=== PATIENT | male | born 1945 | race African-American/Black ===

== ENCOUNTER 2022-10-30 10:58 | Observation (INO) ==
[2022-10-30 11:52] LABS: Basophils % 0.3 % (0.0-0.8); Eosinophils % 0.1 % (0.00-10.9); Hematocrit 47.6 VOL% (42.0-52.0); Hemoglobin 15.5 GM/DL (14.0-18.0); Immature Granulocytes % 1.1 %; Immature Granulocytes Absolute 0.13 #; Lymphocytes # 0.8 10*3/uL (1.4-4.0); Mean Corpuscular HGB Conc 32.6 GM/DL (32-36); Mean Corpuscular Volume 93.2 FL (87-102); Mean Platelet Volume 9.2 FL (9.6-12.0); Monocytes # 1.5 10*3/uL (0.11-0.8); Monocytes % 12.6 % (1.7-12.7); Neutrophils % 78.9 % (38.7-73.9); Platelet Count 164 T/CUMM (130-400); Red Blood Count 5.11 MC/CUMM (3.8-5.5); Red Cell Distribution Width 14.1 % (9.3-17.3); White Blood Count 11.9 T/CUMM (4-12)
[2022-10-30 12:09] LABS: Albumin 3.1 G/DL (3.4-5.0); Bilirubin,Total 1.4 MG/DL (0.20-1.00); Calcium 10.2 MG/DL (8.5-10.1); Osmolality,Calculated 274.2 MOS/KG (273-304); Potassium 3.1 MMOL/L (3.5-5.1); Total Protein 6.5 G/DL (6.4-8.2)
[2022-10-30] MEDS ORDERED: SODIUM CHLORIDE 0.9% 1,000 ML IV STA (12:27)
[2022-10-30] MEDS ORDERED: ACETAMINOPHEN 325 MG TABLET PO PRN (14:22)
[2022-10-30] MEDS ORDERED: SIMETHICONE CHEW 125 MG TABLET PO PRN (14:22)
[2022-10-30] MEDS ORDERED: ONDANSETRON 4 MG/2 ML VIAL IV PRN (14:22)
[2022-10-30] MEDS ORDERED: DOCUSATE SODIUM 100 MG CAPSULE PO PRN (14:22)
[2022-10-30] MEDS ORDERED: ALBUTEROL 2.5 MG/3 ML NEB RESP TX PRN (14:22)
[2022-10-30] MEDS ORDERED: hydrALAZINE 20 MG/1 ML VIAL IV PRN (14:22)
[2022-10-30] MEDS ORDERED: POTASSIUM CHLORIDE 10 MEQ TABLET PO ONE (15:25)
[2022-10-30] MEDS ORDERED: NON-FORMULARY MEDICATION (Albuterol Sulfate 90 mcg/actuation HFA aerosol inhaler) INH PRN (15:27)
[2022-10-30] MEDS: SODIUM CHLORIDE 0.9% 1,000 ML IV SCH (17:29)
[2022-10-30] MEDS: NILOTINIB 150 MG PO SCH (17:54)
[2022-10-30] MEDS: ENOXAPARIN 40 MG/0.4 ML SYRINGE SUBCUT SCH (21:33)
[2022-10-30] MEDS: ROSUVASTATIN 20 MG TABLET PO SCH (21:33)
[2022-10-30] MEDS: MAGNESIUM CHLORIDE 64 MG TABLET PO SCH (21:33)
[2022-10-30] MEDS: methylPREDNISolone 4 MG TABLET PO SCH (21:33)
[2022-10-31] MEDS: NILOTINIB 150 MG PO SCH ×2 (05:00→15:53)
[2022-10-31 06:41] LABS: Basophils % 0.2 % (0.0-0.8); Eosinophils % 0.2 % (0.00-10.9); Hematocrit 37.5 VOL% (42.0-52.0); Hemoglobin 12.3 GM/DL (14.0-18.0); Immature Granulocytes Absolute 0.08 #; Lymphocytes # 0.6 10*3/uL (1.4-4.0); Lymphocytes % 7.7 % (21.2-54.2); Mean Corpuscular HGB Conc 32.8 GM/DL (32-36); Mean Corpuscular Volume 92.8 FL (87-102); Mean Platelet Volume 10.3 FL (9.6-12.0); Monocytes # 1.1 10*3/uL (0.11-0.8); Monocytes % 14.2 % (1.7-12.7); Neutrophils % 76.7 % (38.7-73.9); Platelet Count 111 T/CUMM (130-400); Red Blood Count 4.04 MC/CUMM (3.8-5.5); Red Cell Distribution Width 14.3 % (9.3-17.3); White Blood Count 8.1 T/CUMM (4-12)
[2022-10-31 07:10] LABS: Albumin 2.2 G/DL (3.4-5.0); Bilirubin,Total 1.2 MG/DL (0.20-1.00); Calcium 8.3 MG/DL (8.5-10.1); Potassium 2.7 MMOL/L (3.5-5.1); Risk Ratio 1.86; Thyroid Stimulating Hormone 0.606 uIU/ml (0.358-3.74); Total Protein 5.1 G/DL (6.4-8.2); VLDL Cholesterol 14.8 MG/DL
[2022-10-31] MEDS ORDERED: POTASSIUM CHLORIDE 20 MEQ TABLET PO ONE (08:24)
[2022-10-31] MEDS: methylPREDNISolone 4 MG TABLET PO SCH ×2 (09:07→21:27)
[2022-10-31] MEDS: PANTOPRAZOLE 40 MG TABLET PO SCH (09:08)
[2022-10-31] MEDS: CHOLECALCIFEROL 5,000 UNIT TABLET PO SCH (09:08)
[2022-10-31] MEDS: ASCORBIC ACID 500 MG TABLET PO SCH (09:08)
[2022-10-31] MEDS: MULTIVITAMIN (CENTRUM) TABLET PO SCH (09:08)
[2022-10-31] MEDS: FOLIC ACID 1 MG TABLET PO SCH (09:08)
[2022-10-31] MEDS: POTASSIUM CHLORIDE 10 MEQ TABLET PO SCH (09:08)
[2022-10-31] MEDS: MAGNESIUM CHLORIDE 64 MG TABLET PO SCH ×2 (09:08→21:27)
[2022-10-31 10:48] LABS: % Iron Saturation 39.4 % (18-50)
[2022-10-31 11:20] LABS: Folate > 24.00 NG/ML (5.38-24.0); Vitamin B12 > 2000 PG/ML (211-911)
[2022-10-31] MEDS: SODIUM CHLORIDE 0.9% 1,000 ML IV SCH ×2 (11:25→19:20)
[2022-10-31] MEDS ORDERED: DIGOXIN 0.125 MG TABLET PO SCH (13:00)
[2022-10-31] MEDS: ENOXAPARIN 40 MG/0.4 ML SYRINGE SUBCUT SCH (21:27)
[2022-10-31] MEDS: ROSUVASTATIN 20 MG TABLET PO SCH (21:27)
[2022-11-01] MEDS: NILOTINIB 150 MG PO SCH (01:35)
[2022-11-01 05:14] LABS: Basophils % 0.2 % (0.0-0.8); Eosinophils % 0.2 % (0.00-10.9); Hematocrit 35.7 VOL% (42.0-52.0); Hemoglobin 12.1 GM/DL (14.0-18.0); Immature Granulocytes % 1.2 %; Immature Granulocytes Absolute 0.11 #; Lymphocytes # 0.6 10*3/uL (1.4-4.0); Lymphocytes % 6.7 % (21.2-54.2); Mean Corpuscular HGB Conc 33.9 GM/DL (32-36); Mean Corpuscular Volume 92.2 FL (87-102); Mean Platelet Volume 9.3 FL (9.6-12.0); Monocytes # 1.1 10*3/uL (0.11-0.8); Monocytes % 12.1 % (1.7-12.7); Neutrophils % 79.6 % (38.7-73.9); Platelet Count 121 T/CUMM (130-400); Red Blood Count 3.87 MC/CUMM (3.8-5.5); Red Cell Distribution Width 14.6 % (9.3-17.3); White Blood Count 9.3 T/CUMM (4-12)
[2022-11-01 05:42] LABS: Calcium 8.2 MG/DL (8.5-10.1); Osmolality,Calculated 278.5 MOS/KG (273-304); Potassium 3.1 MMOL/L (3.5-5.1)
[2022-11-01] MEDS: methylPREDNISolone 4 MG TABLET PO SCH (08:57)
[2022-11-01] MEDS: FOLIC ACID 1 MG TABLET PO SCH (08:58)
[2022-11-01] MEDS: CHOLECALCIFEROL 5,000 UNIT TABLET PO SCH (08:58)
[2022-11-01] MEDS: ASCORBIC ACID 500 MG TABLET PO SCH (08:58)
[2022-11-01] MEDS: POTASSIUM CHLORIDE 10 MEQ TABLET PO SCH (08:58)
[2022-11-01] MEDS: MULTIVITAMIN (CENTRUM) TABLET PO SCH (08:58)
[2022-11-01] MEDS: MAGNESIUM CHLORIDE 64 MG TABLET PO SCH (08:58)
[2022-11-01] MEDS: PANTOPRAZOLE 40 MG TABLET PO SCH (08:58)
[2022-11-01] MEDS: SODIUM CHLORIDE 0.9% 1,000 ML IV SCH (10:33)
[2022-11-01 12:33] VITALS: BP 99/47
== END 2022-11-01 12:59 | disposition home or self-care (01) ==
LOC: N.ED 10:58 → N.EDINP 10:58 → N.2W 15:45
PROVIDERS: ADMIT Internal Medicine; ATTEND Internal Medicine

== ENCOUNTER 2022-11-07 02:56 | Inpatient (IN) ==
[2022-11-07] MEDS ORDERED: ALBUTEROL/IPRATROPIUM 3 ML NEB RESP TX STA (03:15)
[2022-11-07] MEDS ORDERED: FUROSEMIDE 40 MG/4 ML VIAL IV STA ×2 (03:15→03:24)
[2022-11-07] MEDS ORDERED: methylPREDNISolone SOD SUC 125 MG/2 ML VIAL IV STA (03:15)
[2022-11-07] MEDS ORDERED: ONDANSETRON 4 MG/2 ML VIAL IV STA (03:15)
[2022-11-07] MEDS ORDERED: FUROSEMIDE 40 MG/4 ML VIAL ONE (03:24)
[2022-11-07 03:29] LABS: Basophils % 0.1 % (0.0-0.8); Hemoglobin 12.8 GM/DL (14.0-18.0); Immature Granulocytes % 0.5 %; Immature Granulocytes Absolute 0.05 #; Lymphocytes # 0.3 10*3/uL (1.4-4.0); Lymphocytes % 3.3 % (21.2-54.2); Mean Corpuscular HGB Conc 32.8 GM/DL (32-36); Mean Corpuscular Volume 94.7 FL (87-102); Mean Platelet Volume 9.6 FL (9.6-12.0); Monocytes # 1.4 10*3/uL (0.11-0.8); Monocytes % 15.1 % (1.7-12.7); Platelet Count 168 T/CUMM (130-400); Red Blood Count 4.12 MC/CUMM (3.8-5.5); Red Cell Distribution Width 16.3 % (9.3-17.3); White Blood Count 9.51 T/CUMM (4-12)
[2022-11-07] MEDS ORDERED: ACETAMINOPHEN 500 MG TABLET PO STA (03:36)
[2022-11-07 03:39] LABS: INR 0.9; PT Patient Result 9.9 SECS (10.1-12.1)
[2022-11-07 03:50] LABS: Band Neutrophils 2 % (0-10); Lymphocytes 7 % (20-55); Platelet Estimate Adequate; Total Cells Counted 100
[2022-11-07 03:52] LABS: Albumin 2.4 G/DL (3.4-5.0); Bilirubin,Total 1.2 MG/DL (0.20-1.00); Calcium 8.9 MG/DL (8.5-10.1); Osmolality,Calculated 289.8 MOS/KG (273-304); Potassium 4.3 MMOL/L (3.5-5.1); Total Protein 5.9 G/DL (6.4-8.2)
[2022-11-07 04:01] LABS: Arterial Base Excess iSTAT 1 MMOL/L (-2.5-2.5); Arterial Bicarbonate iSTAT 25.2 MMOL/L (20-26); Arterial O2 Saturation iSTAT 89 % (95-100); Arterial PCO2 iSTAT 36 MM HG (35-48); Arterial PO2 iSTAT 54 MM HG (80-95); Arterial Total CO2 iSTAT 26 MMO/L (23-27)
[2022-11-07 04:06] LABS: Bacteria,Urine Occasional /HPF (Few); Mucus,Urine Occasional /LPF (Occasional); RBC,Urine 4 /HPF (0-4)
[2022-11-07 04:07] LABS: Urine Appearance Clear (Clear); Urine Color Yellow (Yellow); Urine Specific Gravity 1.015 (1.001-1.035)
[2022-11-07 04:08] LABS: Bilirubin,Urine Negative (Negative); Blood, Urine Moderate mg/dL (Negative); Glucose,Urine (UA) Negative (Negative); Ketones,Urine Negative (Negative); Nitrite,Urine Negative (Negative); Protein,Urine 100 mg/dL (Negative); Urine Urobilinogen 0.2 eU/dL (<2.0)
[2022-11-07] MEDS: PIPERACILLIN/TAZOBACTAM 3,375 MG in SODIUM CHLORIDE 0.9% 100 ML IV SCH ×3 (04:11→20:50)
[2022-11-07] MEDS ORDERED: MORPHINE 2 MG/1 ML SYRINGE IV PRN (04:46)
[2022-11-07] MEDS ORDERED: ACETAMINOPHEN 325 MG TABLET PO PRN (04:46)
[2022-11-07] MEDS ORDERED: ONDANSETRON 4 MG/2 ML VIAL IV PRN (04:46)
[2022-11-07] MEDS ORDERED: NILOTINIB 150 MG PO SCH ×2 (05:45→21:00)
[2022-11-07] MEDS: ALBUTEROL/IPRATROPIUM 3 ML NEB RESP TX SCH ×3 (06:46→19:15)
[2022-11-07] MEDS: MAGNESIUM CHLORIDE 64 MG TABLET PO SCH ×2 (08:30→20:50)
[2022-11-07] MEDS: CHOLECALCIFEROL 5,000 UNIT TABLET PO SCH (08:30)
[2022-11-07] MEDS: FOLIC ACID 1 MG TABLET PO SCH (08:30)
[2022-11-07] MEDS: PANTOPRAZOLE 40 MG TABLET PO SCH (08:30)
[2022-11-07] MEDS: methylPREDNISolone 4 MG TABLET PO SCH ×2 (08:30→20:50)
[2022-11-07] MEDS: MULTIVITAMIN (CENTRUM) TABLET PO SCH (08:31)
[2022-11-07] MEDS ORDERED: POTASSIUM CHLORIDE 10 MEQ TABLET PO SCH (09:00)
[2022-11-07] MEDS ORDERED: ASCORBIC ACID 500 MG TABLET PO SCH (09:00)
[2022-11-07] MEDS ORDERED: INFLUENZA VIRUS VACCINE 0.5 ML SYRINGE IM ONE (10:04)
[2022-11-07] MEDS: ASCORBIC ACID 500 MG TABLET PO SCH ×2 (11:27→20:50)
[2022-11-07] MEDS ORDERED: FUROSEMIDE 40 MG/4 ML VIAL IV SCH (16:00)
[2022-11-07] MEDS: NILOTINIB PO SCH (18:27)
[2022-11-07] MEDS: traZODone 50 MG TABLET PO SCH (20:50)
[2022-11-07] MEDS: ENOXAPARIN 40 MG/0.4 ML SYRINGE SUBCUT SCH (20:50)
[2022-11-07] MEDS: ROSUVASTATIN 20 MG TABLET PO SCH (20:50)
[2022-11-08] MEDS: ALBUTEROL/IPRATROPIUM 3 ML NEB RESP TX SCH ×4 (00:29→20:00)
[2022-11-08] MEDS: PIPERACILLIN/TAZOBACTAM 3,375 MG in SODIUM CHLORIDE 0.9% 100 ML IV SCH (04:29)
[2022-11-08 04:54] LABS: Basophils % 0.2 % (0.0-0.8); Hematocrit 31.8 VOL% (42.0-52.0); Hemoglobin 10.4 GM/DL (14.0-18.0); Immature Granulocytes % 0.5 %; Immature Granulocytes Absolute 0.04 #; Lymphocytes # 0.2 10*3/uL (1.4-4.0); Lymphocytes % 2.7 % (21.2-54.2); Mean Corpuscular HGB Conc 32.7 GM/DL (32-36); Mean Corpuscular Volume 94.1 FL (87-102); Mean Platelet Volume 10.2 FL (9.6-12.0); Monocytes % 12.4 % (1.7-12.7); Neutrophils % 84.2 % (38.7-73.9); Platelet Count 155 T/CUMM (130-400); Red Blood Count 3.38 MC/CUMM (3.8-5.5); Red Cell Distribution Width 15.9 % (9.3-17.3); White Blood Count 8.08 T/CUMM (4-12)
[2022-11-08 05:15] LABS: Albumin 1.8 G/DL (3.4-5.0); Bilirubin,Total 0.7 MG/DL (0.20-1.00); Calcium 8.4 MG/DL (8.5-10.1); Osmolality,Calculated 288.3 MOS/KG (273-304); Potassium 3.4 MMOL/L (3.5-5.1); Total Protein 5.6 G/DL (6.4-8.2)
[2022-11-08 05:31] LABS: Band Neutrophils 11 % (0-10); Lymphocytes 1 % (20-55); Total Cells Counted 100
[2022-11-08 05:32] LABS: Microcytosis Slight; Ovalocytes Slight; Platelet Estimate Adequate
[2022-11-08] MEDS: NILOTINIB PO SCH ×2 (05:47→18:43)
[2022-11-08] MEDS: MULTIVITAMIN (CENTRUM) TABLET PO SCH (10:05)
[2022-11-08] MEDS: POTASSIUM CHLORIDE 20 MEQ TABLET PO SCH (10:05)
[2022-11-08] MEDS: FOLIC ACID 1 MG TABLET PO SCH (10:05)
[2022-11-08] MEDS: methylPREDNISolone 4 MG TABLET PO SCH ×2 (10:06→21:13)
[2022-11-08] MEDS: CHOLECALCIFEROL 5,000 UNIT TABLET PO SCH (10:06)
[2022-11-08] MEDS: MAGNESIUM CHLORIDE 64 MG TABLET PO SCH ×2 (10:06→21:14)
[2022-11-08] MEDS: PANTOPRAZOLE 40 MG TABLET PO SCH (10:06)
[2022-11-08] MEDS: ASCORBIC ACID 500 MG TABLET PO SCH ×2 (10:06→21:14)
[2022-11-08] MEDS: cefTRIAXone 1,000 MG in SODIUM CHLORIDE 0.9% 100 ML IV SCH (10:08)
[2022-11-08] MEDS: AZITHROMYCIN INJ 500 MG in SODIUM CHLORIDE 0.9% 250 ML IV SCH (10:49)
[2022-11-08] MEDS: traZODone 50 MG TABLET PO SCH (21:14)
[2022-11-08] MEDS: ROSUVASTATIN 20 MG TABLET PO SCH (21:14)
[2022-11-08] MEDS: ENOXAPARIN 40 MG/0.4 ML SYRINGE SUBCUT SCH (21:14)
[2022-11-09] MEDS: ALBUTEROL/IPRATROPIUM 3 ML NEB RESP TX SCH ×2 (01:07→07:50)
[2022-11-09] MEDS: NILOTINIB PO SCH (06:31)
[2022-11-09 07:54] LABS: Basophils % 0.1 % (0.0-0.8); Hematocrit 32.5 VOL% (42.0-52.0); Hemoglobin 10.5 GM/DL (14.0-18.0); Immature Granulocytes % 1.2 %; Immature Granulocytes Absolute 0.13 #; Lymphocytes # 0.3 10*3/uL (1.4-4.0); Lymphocytes % 2.8 % (21.2-54.2); Mean Corpuscular HGB Conc 32.3 GM/DL (32-36); Mean Platelet Volume 9.2 FL (9.6-12.0); Monocytes # 1.4 10*3/uL (0.11-0.8); Monocytes % 12.8 % (1.7-12.7); Neutrophils % 83.1 % (38.7-73.9); Platelet Count 158 T/CUMM (130-400); Red Blood Count 3.42 MC/CUMM (3.8-5.5); Red Cell Distribution Width 16.1 % (9.3-17.3); White Blood Count 10.68 T/CUMM (4-12)
[2022-11-09 08:09] LABS: Calcium 8.4 MG/DL (8.5-10.1); Osmolality,Calculated 282.4 MOS/KG (273-304); Potassium 3.9 MMOL/L (3.5-5.1)
[2022-11-09 08:13] VITALS: BP 103/65
[2022-11-09 08:22] LABS: Hypochromia Slight; Lymphocytes 5 % (20-55); Microcytosis Slight; Platelet Estimate Adequate; Total Cells Counted 100
[2022-11-09] MEDS: ASCORBIC ACID 500 MG TABLET PO SCH (08:31)
[2022-11-09] MEDS: POTASSIUM CHLORIDE 20 MEQ TABLET PO SCH (08:31)
[2022-11-09] MEDS: CHOLECALCIFEROL 5,000 UNIT TABLET PO SCH (08:31)
[2022-11-09] MEDS: methylPREDNISolone 4 MG TABLET PO SCH (08:31)
[2022-11-09] MEDS: MULTIVITAMIN (CENTRUM) TABLET PO SCH (08:31)
[2022-11-09] MEDS: cefTRIAXone 1,000 MG in SODIUM CHLORIDE 0.9% 100 ML IV SCH (08:31)
[2022-11-09] MEDS: PANTOPRAZOLE 40 MG TABLET PO SCH (08:31)
[2022-11-09] MEDS: FOLIC ACID 1 MG TABLET PO SCH (08:31)
[2022-11-09] MEDS: MAGNESIUM CHLORIDE 64 MG TABLET PO SCH (08:39)
[2022-11-09] MEDS: AZITHROMYCIN INJ 500 MG in SODIUM CHLORIDE 0.9% 250 ML IV SCH (09:08)
== END 2022-11-09 11:37 | disposition home health service (06) | DRG 291 ==
LOC: N.ED 02:56 → N.EDINP 04:46 → N.TELEN 07:05
PROVIDERS: ADMIT Internal Medicine; ATTEND Internal Medicine